=== PATIENT | female | born 1985 | race Caucasian/White ===

== ENCOUNTER 2016-05-19 16:26 | Inpatient (IN) | payer MEDICAID, OTHER ==
[~2016-05-19] VITALS: Ht 160 cm; Wt 58.6 kg
[~2016-05-19 16:26] MED LIST: CLON1 PO; FLUO-191 PO; QUET100T PO
[2016-05-19] MEDS ORDERED: ZOLP5 PO (16:55)
[2016-05-19] MEDS ORDERED: ARIP2 PO (16:55)
[2016-05-19] MEDS ORDERED: BUPR1FIL3 SL (16:55)
[2016-05-19] MEDS ORDERED: HALO10 PO (16:55)
[2016-05-19] MEDS ORDERED: ALPR1TAB7 PO (16:55)
[2016-05-19 17:57] LABS: BASOPHILS % (AUTO) 0.3 % (0.0-2.0); EOSINOPHILS % (AUTO) 0.4 % (1.0-6.0); HEMATOCRIT 45.3 % (36-46); LYMPHOCYTES # (AUTO) 1.8 K/uL (1.0-4.8); MEAN CORPUSCULAR HEMOGLOBIN 31.7 pg (26.0-34.0); MEAN CORPUSCULAR HGB CONC 33.1 G/dL (31.0-37.0); MEAN CORPUSCULAR VOLUME 96 fL (80-100); MONOCYTES # (AUTO) 0.6 K/uL (0.1-1.0); NEUTROPHILS # (AUTO) 4.9 K/uL (1.8-7.7); NEUTROPHILS % (AUTO) 66.4 % (40.0-70.0); PLATELET COUNT (AUTO) 159 K/uL (150-450); RED BLOOD CELL COUNT(AUTO) 4.73 MIL/uL (4.00-5.20); RED CELL DISTRIBUTION WIDTH 12.3 % (11.5-14.5); WHITE BLOOD COUNT (AUTO) 7.3 K/uL (4.5-11.0)
[2016-05-19 18:05] LABS: ANION GAP 12 mmol/L (8-16); CALCIUM, TOTAL 8.8 mg/dL (8.8-10.5); CARBON DIOXIDE 24 mmol/L (22-29); CHLORIDE 102 mmol/L (98-107); CREATININE 0.77 mg/dL (0.60-1.30); GLOMERULAR FILTR. RATE CALC > 60 mL/min (>60); POTASSIUM 4.2 mmol/L (3.5-5.1); SODIUM SERUM 138 mmol/L (136-145); UREA NITROGEN, BLOOD 11 mg/dL (7-18)
[2016-05-19 18:12] LABS: ALANINE AMINOTRANSFERASE 28 U/L (12-78); ALBUMIN 3.7 g/dL (3.4-5.0); ASPARTATE AMINOTRANSFERASE 22 U/L (15-37); BILIRUBIN,TOTAL 0.6 mg/dL (0.1-1.0)
[2016-05-19 18:13] LABS: LYMPHOCYTES % (AUTO) 24.9 % (22.0-44.0)
[2016-05-19] MEDS ORDERED: ACETAMINOPHEN 325 MG TABLET PO PRN (20:30)
[2016-05-19] MEDS ORDERED: ZOLPIDEM TARTRATE 10 MG TABLET PO PRN (20:30)
[2016-05-19] MEDS ORDERED: MAGNESIUM HYDROXIDE SUSPENSION 30 ML UDCUP PO PRN (20:30)
[2016-05-19 21:41] VITALS: BP 132/78
[2016-05-19] MEDS: LORazepam 2 MG TABLET PO PRN (22:01)
[2016-05-19] MEDS ORDERED: DESONIDE 0.05% 15 GM CREAM TP PRN (22:30)
[2016-05-20] MEDS: HALOPERIDOL 5 MG TABLET PO PRN ×3 (02:45→18:09)
[2016-05-20] MEDS: NICOTINE 14 MG/24 HOUR PATCH TD SCH (10:05)
[2016-05-20 10:08] VITALS: BP 92/68
[2016-05-20 10:34] VITALS: BP 112/85
[2016-05-20] MEDS: LORazepam 2 MG TABLET PO PRN ×2 (10:36→18:09)
[2016-05-20 18:12] VITALS: BP 127/93
[2016-05-20] MEDS ORDERED: CloNIDine HCL 0.1 MG TABLET PO PRN (20:30)
[2016-05-20] MEDS ORDERED: QUET200T PO (20:41)
[2016-05-20] MEDS: QUEtiapine FUMARATE 300 MG TABLET PO SCH (21:51)
[2016-05-21] MEDS: HydrOXYzine PAMOATE 25 MG CAPSULE PO PRN ×2 (05:55→14:53)
[2016-05-21 05:59] VITALS: BP 110/75
[2016-05-21 08:00] VITALS: BP 117/77
[2016-05-21] MEDS: LORazepam 1 MG TABLET PO SCH ×2 (09:52→17:38)
[2016-05-21] MEDS: NICOTINE 14 MG/24 HOUR PATCH TD SCH (09:57)
[2016-05-21] MEDS: HALOPERIDOL 5 MG TABLET PO PRN ×2 (10:55→17:38)
[2016-05-21 16:38] VITALS: BP 112/81
[2016-05-21] MEDS: QUEtiapine FUMARATE 300 MG TABLET PO SCH (21:41)
[2016-05-22 06:41] VITALS: BP 106/73
[2016-05-22 08:26] VITALS: BP 115/76
[2016-05-22] MEDS ORDERED: LORazepam 1 MG TABLET PO SCH (09:00)
[2016-05-22] MEDS: NICOTINE 14 MG/24 HOUR PATCH TD SCH (09:15)
[2016-05-22] MEDS: HALOPERIDOL 5 MG TABLET PO PRN (09:16)
[2016-05-22 16:32] VITALS: BP 119/79
[2016-05-22] MEDS ORDERED: QUET300T2 PO (19:46)
[2016-05-22] MEDS: QUEtiapine FUMARATE 300 MG TABLET PO SCH (20:07)
== END 2016-05-22 20:15 | disposition home or self-care (01) | DRG 750 ==
LOC: EMS 16:27 → EEVIPCON 16:27 → 3EI 20:24
PROVIDERS: ADMIT Psychiatry & Neurology Psychiatry; ATTEND Psychiatry & Neurology Psychiatry
DX: F20.0 Paranoid schizophrenia (principal); R45.851 Suicidal ideations; F11.20 Opioid dependence, uncomplicated; B19.20 Unspecified viral hepatitis C without hepatic coma; F17.210 Nicotine dependence, cigarettes, uncomplicated; F12.90 Cannabis use, unspecified, uncomplicated; F15.90 Other stimulant use, unspecified, uncomplicated; L40.9 Psoriasis, unspecified; G89.29 Other chronic pain; Z71.51 Drug abuse counseling and surveillance of drug abuser; Z91.14 Patient's other noncompliance with medication regimen; Z79.899 Other long term (current) drug therapy
CPT/HCPCS: 99285; G0480